=== PATIENT | female | born 1975 | race Caucasian/White ===

== ENCOUNTER 2025-02-02 11:57 | Emergency (ER) | payer OTHER, SELFPAY ==
[2025-02-02 12:03] VITALS: BP 155/87
[2025-02-02 12:21] VITALS: BP 133/76
[2025-02-02 13:00] VITALS: BP 121/76
[2025-02-02 13:00] LABS: % Basophils 0.3 % (0-2); % Eosinophils 1.6 % (0-6); % Immature Granulocytes 0.3 % (0-0.5); % Lymphocytes 26.5 % (20.5-51.1); % Monocytes 7.6 % (1.7-9.3); % Neutrophils 63.7 % (42.2-75.2); Absolute Eosinophils 0.1 10^3/uL (0-0.7); Absolute Lymphocytes 1.6 10^3/uL (1.2-3.4); Absolute Monocytes 0.5 10^3/uL (0.1-0.6); Absolute Neutrophils 3.9 10^3/uL (1.4-6.5); Hematocrit 37.4 % (37.0-47.0); Hemoglobin 12.9 g/dL (12.0-16.0); Mean Corp Hgb Conc. 34.5 g/dL (33.0-37.0); Mean Corpuscular Hgb 30.7 pg (27.0-31.0); Mean Platelet Volume 10.8 fL (7.4-10.4); Nucleated Red Blood Cells % 0 %; Platelet Count 230 10^3/uL (130-400); Red Cell Dist. Width 12.9 % (11.5-14.5); White Blood Cell Count 6.1 10^3/uL (4.8-10.8)
[2025-02-02 13:16] LABS: HCG, Serum Qualitative Screen Negative
[2025-02-02 13:22] LABS: Troponin I < 0.012 ng/ml
[2025-02-02 13:25] LABS: ALT (SGPT) 29 U/L (0-35); AST (SGOT) 20 U/L (14-36); Alkaline Phosphatase 94 U/L (38-126); Blood Urea Nitrogen 13 mg/dl (7-17); Calcium 9.5 mg/dl (8.4-10.2); Carbon Dioxide 29 mmol/L (22-30); Chloride 107 mmol/L (98-107); Glucose 90 mg/dl (70-99); Lipase 31 U/L (23-300); Potassium 3.6 mmol/L (3.5-5.1); Sodium 141 mmol/L (135-145); Total Bilirubin 0.8 mg/dl (0.2-1.3); Total Protein 6.4 g/dl (6.3-8.2); eGFR > 60.00
[2025-02-02 14:00] VITALS: BP 138/73
[2025-02-02] MEDS: NSS 1000 IV (14:26)
[2025-02-02] MEDS: PEPCID 20 MG IV (14:26)
--- NOTE | 2025-02-02 15:51 | ED.GENMED ---
History of Present Illness
General
Chief Complaint: Chest Pain
Source: patient
Exam Limitations: none
Time Seen by Provider: 02/02/25 13:54
Nursing documentation reviewed up to this point in time: agreed with
History of Present Illness
History of Present Illness:
The patient is a 49-year-old female who presents to the emergency department for evaluation of upper abdominal discomfort. She reports an initial episode of vomiting after waking up in the middle of the night post-consumption of a meatball sandwich,
broccoli bites, and Caesar salad on Thursday night. Her consumed similar items but was asymptomatic. The patient described the onset as sudden, accompanied by a sensation of nausea centralized below the sternum. Symptoms seem to resolve over
the following few days however, after dining out on Thursday evening, consuming risotto, crab cake, and lemon-flavored drinks, she experienced a recurrence of the nausea and vomiting in the middle of the night.
Patient was seen by her PCP today given persistent symptoms and she was referred to the ED for further evaluation given EKG abnormalities. Currently, she denies chest pain, shortness of breath, or fever. The discomfort is described as an
indigestion-like pressure, primarily located under the right costal margin radiating slightly to the back.
She denies any lower abdominal pain or dysuria. No tearing back pain.
Patient states that she has remained active mowed the lawn yesterday without any chest pain, shortness of breath, or fatigue.
Review of Systems
Review of Systems
Allergies reviewed?: Yes
All Other Systems: ROS reviewed and negative except as documented in HPI and ROS
Phy Exam
Physical Exam
Physical Exam:
Vitals: Mildly hypertensive, otherwise vital signs stable. Afebrile
General: Patient is well appearing, no acute distress
Skin: Warm and dry, no rashes or lesions
Head: Normocephalic, atraumatic
Eyes: Sclera nonicteric. EOMs intact. No nystagmus.
Throat: Protecting airway
Neck: Normal ROM, no cervical spine tenderness, no meningismus
Cardiac: Regular rate and rhythm, no murmurs. No reproducible chest wall tenderness. 2+ radial pulses bilaterally.
Pulm: Normal respiratory effort, no wheezes, rales, rhonchi heard on exam
.
Abdomen: Abdomen soft. Very mild epigastric discomfort. Negative Antoinette sign. No tenderness at McBurneys point.
Extremities: No evidence of cyanosis or edema
Neuro: AAOx3. Grossly intact.
Psychiatric: Normal affect.
Scores
Heart Score for Chest Pain Patients
STEMI patient?: No
History: Slightly or Non-Suspicious
ECG: Nonspecific Repolarization
Age: >45 - <65 years
Risk Factors: 1 or 2 Risk Factors
Troponin: </= Normal Limit
Heart Score for Chest Pain Patients: 3
Heart Score Risk: 2.5% MACE over next 6 weeks
Course
Orders/Labs/Results
Orders:
Orders
02/02/25 11:58
Electrocardiogram (*1) Urgent
Reason for Study: Chest Pain
EKG- Treatment ONCE
02/02/25 12:33
Test Result ONCE
02/02/25 12:46
Complete Blood Count/With Diff Urgent
Comprehensive Metabolic Panel Urgent
HCG, Serum Qualitative Screen Urgent
Lipase Urgent
Troponin I Urgent
02/02/25 14:06
0.9% Sodium Chloride 1000 ml [Nss] 1,000 ml IV BOLUS
Famotidine [Pepcid] 20 mg IV NOW STA
US Abdomen Complete/Upper Urgent
Comment:
Reason For Exam: Upper abdominal pain, vomiting
02/02/25 15:45
Electrocardiogram (*1) Urgent
Reason for Study: Abdominal Pain
EKG- Treatment ONCE
02/02/25 15:53
Troponin I Urgent
Abnormal Lab Results
02/02/25
12:46
MPV 10.8 H fL
(7.4-10.4)
Creatinine 0.5 L mg/dL
(0.6-1.0)
02/02/25 12:46
02/02/25 12:46
Vital Signs
Initial and Last Documented VS:
Initial Vital Signs
Temp Pulse Resp BP Pulse Ox
97.7 F 73 20 155/87 98
02/02/25 12:03 02/02/25 12:03 02/02/25 12:03 02/02/25 12:03 02/02/25 12:03
Last Documented Vital Signs
Temp Pulse Resp BP Pulse Ox
97.7 F 69 23 138/73 97
02/02/25 12:03 02/02/25 17:00 02/02/25 17:00 02/02/25 14:00 02/02/25 17:00
MDM/Problems Addressed
Differential Diagnosis Includes:
Not limited to: GERD, gastritis, biliary colic, acute cholecystitis, pancreatitis, ACS, muscle strain, etc
MDM/Problems Addressed:
The 49-year-old female patient presented to the emergency department with vague upper abdominal discomfort and a few instances of nausea and vomiting over the past week. She denied any associated chest pain, shortness of breath, dizziness, or fever.
Vitals stable on arrival.
Her abdominal examination revealed only very mild tenderness in the epigastric region with a negative Higuera sign and no tenderness at McBurneys point. Cardiopulmonary assessment was unremarkable. An initial ECG showed NSR w/ some T-wave inversions
in the anterior leads. Differential broad. Will check labs and abdominal US to r/o intra-abdominal source such as biliary colic, acute cholecystits, pancreatitis, etc. Given t-wave inversions noted on EKG - will plan to perform serial troponins to
r/o ACS. Will give IV pepcid and reassess.
Update: The labs showed no leukocytosis, and chemistry was unremarkable. The abdominal ultrasound showed no acute abnormalities. She had two negative serial troponins. Symptoms did moderately improved following IV pepcid. Ultimately - work up in ED
unremarkable. Suspect some component of GERD contributing to symptoms. Low suspicion for acute intra-abdominal infectious process given patient is afebrile with no leukocytosis and benign abdominal exam. Do not suspect ACS however given
abnormalities noted on EKG - the patient will be placed on a chest-pain hotline for immediate cardiac follow-up outpatient. She was provided with strict return precautions should her symptoms worsen or new symptoms arise. Holger trial PPI for a few
weeks.
Chronic conditions affecting care:
N/A
Acute Exacerbation and/or Progression of Chronic Illness:
N/A
*Radiology
Radiology exam reviewed: radiology read reviewed
*Pulse Oximetry
Patient hypoxic: no (98% on RA)
*EKG
Interpreted by ED Provider?: Yes
EKG Intrepretation Date: 02/02/25
Interpretation: abnormal
Comparison EKG: no comparison EKG present
Heart Rate: 66
Rate: normal
Rhythm: sinus
[place]: normal axis
Interval: normal QT interval
Ischemia: T-wave inversion (anterior lead t wave inversions)
*Creative Resource Manager Interpretation
Rate: normal
Interpretation: normal
Heart Rate: 70
Rhythm: sinus
*Critical Care Note
Total Time (30-74mins, 75-104mins- exclusive of procedures): Not Applicable
ED Attending Note
-
Portions of this chart may have been created with voice recognition software.� Occasional wrong word or��sound alike� substitutions may have occurred due to the inherent limitations of voice recognition software.
Discharge Plan
Departure
Patient Disposition: Home (Routine Discharge)
Date of Disposition: 02/02/25
Time of Disposition: 17:18
Patient with high blood pressure during this ER visit?: Yes
Discharge Problem:
Epigastric abdominal pain, Nausea and vomiting
Instructions: Acid Reflux and GERD in Adults (DC), Chest Pain DCA Follow Up, BLOOD PRESSURE
Prescriptions:
New
pantoprazole 40 mg tablet,delayed release (DR/EC)
40 mg PO DAILY Qty: 14 0RF
Referrals:
Alla Irvin MD [Family Provider] - Follow up in 5-7 days
Reginald Sanchez MD [Active, Cardiology] - Follow up in 2-3 days
Activity Restrictions/Additional Instructions:
RETURN TO THE EMERGENCY DEPARTMENT WITH ANY CHEST PAIN, SHORTNESS OF BREATH, INTRACTABLE NAUSEA/VOMITING, SEVERE BACK PAIN, LIGHTHEADEDNESS/DIZZINESS, CHEST PAIN OR SHORTNESS OF BREATH THAT IS WORSE WITH EXERTION, ABDOMINAL PAIN, OR ANY OTHER
CONCERNS
- As discussed�your workup in the emergency department showed no acute abnormalities.
-A prescription for pantoprazole is been sent to your pharmacy. Please take this once a day for the next few weeks to treat a possible acid reflux component. It is important stay well-hydrated. I would recommend a bland diet
- Follow-up with cardiology for further evaluation/management. You may require further testing.
- You should also call your primary care physician for follow-up
Monitor your symptoms closely and return to the emergency department with any acute worsening/new symptoms or any other concerns
Interventions
Interventions:
*Risk Screen - Suicide Last Done: 02/02/25 12:03
*General Assessment Last Done: 02/02/25 12:03
*Neglect/Abuse Screening Last Done: 02/02/25 12:03
*ED- Fall Risk Assessment Last Done: 02/02/25 17:30
*ED COVID-19 Vaccine History Last Done: 02/02/25 13:08
*Nursing Disposition Last Done: 02/02/25 17:30
ED- Cardiac Assessment Last Done: 02/02/25 13:08
Discharge Date and Time
Discharge Date/Time: 02/02/25 17:34
Print Language: ROMANIAN
[2025-02-02 16:26] LABS: Troponin I 0.013 ng/ml
== END 2025-02-02 17:34 | disposition home or self-care (01) ==
LOC: EMR 11:57
PROVIDERS: Physician Assistant; EMERGENCY PHYSICIAN Emergency Medicine; FAMILY PHYSICIAN Family Medicine
DX: R10.13 Epigastric pain (principal); R11.2 Nausea with vomiting, unspecified; R94.31 Abnormal electrocardiogram [ECG] [EKG]
CPT/HCPCS: 96374; 96361; 99284; 76700; 80053; 83690; 84484; 84703; 85025; 93005

== ENCOUNTER → 2025-02-10 13:25 | Outpatient (REF) | payer OTHER, SELFPAY | LOC: RCS 13:25 | PROVIDERS: ATTENDING PHYSICIAN Internal Medicine Cardiovascular Disease; FAMILY PHYSICIAN Family Medicine | DX: R07.9 Chest pain, unspecified (principal) | CPT/HCPCS: 93017 ==